=== PATIENT | male | born 1930 | race Caucasian/White ===

== ENCOUNTER → 2016-10-04 | Outpatient (CLI) | payer OTHER ==
[~2016-10-04] MED LIST: AMIO200T PO; ASPI-496 PO; BENZ200C40 PO; BIMA2.5D EACHEYE; COLE1TAB2 PO; COLE1TAB4 PO; DICL50TA4 PO; DOCU-30 PO; DOXA1TAB PO; DOXA1TAB2 PO; ESOM40CA PO; FURO-92 PO; HYDR-3144 PO; LISI-167 PO; LISI5TAB7 PO; MELO-184 PO; OMEP40CA6 PO; POTA20TA14 PO; PRAV40TA2 PO; SUCR1TAB26 PO; TAMS0.4C2 PO; WARF1TAB7 PO; WARF5TAB7 PO
== END | disposition home or self-care (01) ==
LOC: CFH 09:27
PROVIDERS: ATTEND Internal Medicine Cardiovascular Disease
DX: Z95.2 Presence of prosthetic heart valve (principal)
CPT/HCPCS: 93306

== ENCOUNTER → 2016-12-19 | Outpatient (CLI) | payer OTHER | END | disposition home or self-care (01) | LOC: CFH 10:36 | PROVIDERS: ATTEND Family Medicine | DX: J98.4 Other disorders of lung (principal); J98.6 Disorders of diaphragm; Z95.2 Presence of prosthetic heart valve | CPT/HCPCS: 71020 ==

== ENCOUNTER → 2017-03-23 | Outpatient (CLI) | payer OTHER ==
[~2017-03-23] MED LIST changes: -BENZ200C40 PO; +BENZ200C48 PO; -COLE1TAB4 PO; +COLE1TAB5 PO; +DOCU-131 PO; -DOCU-30 PO; +GADOBUTROL 7.5 MMOL/7.5 ML PFS ONE; -HYDR-3144 PO; +HYDR-3245 PO; -MELO-184 PO; +MELO15TA24 PO; -SUCR1TAB26 PO; +SUCR1TAB33 PO
== END | disposition home or self-care (01) ==
LOC: CFH 08:59
PROVIDERS: ATTEND Family Medicine
DX: G31.9 Degenerative disease of nervous system, unspecified (principal); I65.23 Occlusion and stenosis of bilateral carotid arteries; H53.9 Unspecified visual disturbance
CPT/HCPCS: 70544; 70553; 82565; 93880; A9585

== ENCOUNTER → 2017-10-04 | Outpatient (CLI) | payer OTHER ==
[~2017-10-04] MED LIST changes: -GADOBUTROL 7.5 MMOL/7.5 ML PFS ONE; +WARF-36 PO; -WARF1TAB7 PO; +WARF1TAB74 PO; -WARF5TAB7 PO
== END | disposition home or self-care (01) ==
LOC: CVU 09:19
PROVIDERS: ATTEND Internal Medicine Cardiovascular Disease
DX: I51.7 Cardiomegaly (principal); I34.8 Other nonrheumatic mitral valve disorders; Z95.2 Presence of prosthetic heart valve
CPT/HCPCS: 93306

== ENCOUNTER 2017-11-11 18:16 | Emergency (ER) | payer OTHER ==
[~2017-11-11] VITALS: Ht 172.7 cm; Wt 76.7 kg
[2017-11-11 18:22] VITALS: BP 177/86
[2017-11-11] MEDS ORDERED: DIPH,PERTUSS(ACELL),TET VAC/PF 0.5 ML IM-VACC ONE ×2 (19:14→19:30)
[2017-11-11] MEDS ORDERED: L.E.T SOLUTION TP ONE ×2 (19:14→19:30)
[2017-11-11] MEDS ORDERED: BACITRACIN ZINC OINT 500U/GM, 0.9 GM ONE (19:44)
== END 2017-11-11 21:06 | disposition home or self-care (01) ==
LOC: ED 20:58
DX: S41.102A Unspecified open wound of left upper arm, initial encounter (principal); E11.9 Type 2 diabetes mellitus without complications; E78.5 Hyperlipidemia, unspecified; I25.2 Old myocardial infarction; Z87.891 Personal history of nicotine dependence; Z90.49 Acquired absence of other specified parts of digestive tract; W18.30XA Fall on same level, unspecified, initial encounter; Y93.89 Activity, other specified; Y99.8 Other external cause status; Y92.009 Unspecified place in unspecified non-institutional (private) residence as the place of occurrence of the external cause
CPT/HCPCS: 90471; 90715; 97597; 99283; 99284

== ENCOUNTER 2018-05-24 04:09 | Inpatient (IN) | payer OTHER ==
[~2018-05-24] VITALS: Ht 172.7 cm; Wt 80.5 kg
[2018-05-24] MEDS ORDERED: ONDANSETRON 2MG/ML, 2ML IVPush ONE (05:30)
[2018-05-24] MEDS ORDERED: SODIUM CHLORIDE 0.9% 1,000ML IVBOLUS ONE (05:30)
[2018-05-24 05:50] LABS: BASOPHILS # (AUTO) 0.01 x10^3/uL (0-0.1); BASOPHILS % (AUTO) 0 % (0-1); EOSINOPHILS # (AUTO) 0.05 x10^3/uL (0-0.4); EOSINOPHILS % (AUTO) 1 % (1-7); LYMPHOCYTES % (AUTO) 4 % (22-44); MD NO; MEAN CORPUSCULAR HEMOGLOBIN 32.4 pg (27.5-34.5); MEAN CORPUSCULAR HGB CONC 34.3 g/dL (33.2-36.2); MEAN CORPUSCULAR VOLUME 94.4 fL (81-97); MEAN PLATELET VOLUME 8.1 fL (7.4-10.4); MONOCYTES # (AUTO) 0.26 x10^3/uL (0.2-0.8); MONOCYTES % (AUTO) 3 % (2-9); NEUTROPHILS # (AUTO) 9.53 x10^3/uL (1.8-6.8); NEUTROPHILS % (AUTO) 93 % (42-75); PLATELET COUNT 164 x10^3/uL (130-400); RED BLOOD COUNT 5.43 x10^6/uL (4.38-5.82); RED CELL DISTRIBUTION WIDTH 13.3 % (9.4-14.8)
[2018-05-24 05:56] LABS: ALANINE AMINOTRANSFERASE 17 U/L (12-78); ALBUMIN 3.6 g/dL (3.4-5.0); ANION GAP 7 mmol/L (5-15); CALCIUM 8.7 mg/dL (8.5-10.1); CHLORIDE 102 mmol/L (98-107)
[2018-05-24 05:58] LABS: ALKALINE PHOSPHATASE 79 U/L (45-117); BILIRUBIN,TOTAL 2.4 mg/dL (0.2-1.0); CREATININE 1.43 mg/dL (0.7-1.3); TOTAL PROTEIN 6.3 g/dL (6.4-8.2)
[2018-05-24] MEDS ORDERED: OMNIPAQUE 350 MG/ML, 100ML BOTTLE ONE (06:49)
[2018-05-24] MEDS ORDERED: hydrALAzine 20 MG/ML, 1ML IVPush PRN (10:00)
[2018-05-24] MEDS ORDERED: ONDANSETRON 2MG/ML, 2ML IVPush PRN (10:00)
[2018-05-24] MEDS ORDERED: ONDANSETRON ODT 4 MG PO PRN (10:00)
[2018-05-24] MEDS ORDERED: ZOLPIDEM 5MG TABLET PO PRN (10:00)
[2018-05-24] MEDS ORDERED: ACETAMINOPHEN 325 MG TABLET PO PRN (10:00)
[2018-05-24 10:32] LABS: FREE T4 (FREE THYROXINE) 1.21 ng/dL (0.76-1.46); THYROID STIMULATING HORMONE 1.6 mIU/L (0.358-3.740)
[2018-05-24] MEDS: HEPARIN 5,000 UNITS/ML, 1ML SQ SCH ×2 (11:15→20:28)
[2018-05-24] MEDS: OMEPRAZOLE 20 MG CAPSULE.DR PO SCH (11:15)
[2018-05-24] MEDS: SODIUM CHLORIDE 0.9% 1,000 ML IV SCH ×2 (11:15→20:28)
[2018-05-24 14:58] VITALS: BP 102/65
[2018-05-24 16:04] LABS: CLOSTRIDIUM DIFFICILE ANTIGEN NEGATIVE; CLOSTRIDIUM DIFFICILE TOXIN NEGATIVE (Negative)
[2018-05-24 20:00] VITALS: BP 121/71
[2018-05-24] MEDS ORDERED: PRAVASTATIN 40 MG TABLET PO SCH (21:00)
[2018-05-24] MEDS ORDERED: TAMSULOSIN 0.4 MG CAP.ER.24H PO SCH (21:00)
[2018-05-25 02:00] VITALS: BP 121/71
[2018-05-25 04:54] LABS: BASOPHILS # (AUTO) 0.01 x10^3/uL (0-0.1); BASOPHILS % (AUTO) 0 % (0-1); EOSINOPHILS # (AUTO) 0.16 x10^3/uL (0-0.4); EOSINOPHILS % (AUTO) 2 % (1-7); LYMPHOCYTES # (AUTO) 1.26 x10^3/uL (1-3.4); LYMPHOCYTES % (AUTO) 17 % (22-44); MD NO; MEAN CORPUSCULAR HEMOGLOBIN 32.6 pg (27.5-34.5); MEAN CORPUSCULAR HGB CONC 34.6 g/dL (33.2-36.2); MEAN CORPUSCULAR VOLUME 94.1 fL (81-97); MEAN PLATELET VOLUME 8.4 fL (7.4-10.4); MONOCYTES % (AUTO) 6 % (2-9); NEUTROPHILS % (AUTO) 75 % (42-75); PLATELET COUNT 141 x10^3/uL (130-400); RED CELL DISTRIBUTION WIDTH 13.6 % (9.4-14.8)
[2018-05-25 04:58] LABS: ANION GAP 7 mmol/L (5-15); CALCIUM 7.8 mg/dL (8.5-10.1); CHLORIDE 105 mmol/L (98-107); CREATININE 0.94 mg/dL (0.7-1.3)
[2018-05-25] MEDS: OMEPRAZOLE 20 MG CAPSULE.DR PO SCH (06:01)
[2018-05-25] MEDS: HEPARIN 5,000 UNITS/ML, 1ML SQ SCH (06:03)
[2018-05-25] MEDS: SODIUM CHLORIDE 0.9% 1,000 ML IV SCH (06:05)
[2018-05-25 07:39] VITALS: BP 128/69
[2018-05-25] MEDS ORDERED: COLESTIPOL 1 GM TABLET PO SCH (09:00)
== END 2018-05-25 12:24 | disposition home or self-care (01) | DRG 683 ==
LOC: ED 05:16 → EDIP 07:20 → 4EST 08:59
PROVIDERS: ADMIT Hospitalist; ATTEND Hospitalist
DX: N17.0 Acute kidney failure with tubular necrosis (principal); E87.1 Hypo-osmolality and hyponatremia; E86.0 Dehydration; K52.9 Noninfective gastroenteritis and colitis, unspecified; E11.9 Type 2 diabetes mellitus without complications; E78.5 Hyperlipidemia, unspecified; E87.5 Hyperkalemia; N40.0 Benign prostatic hyperplasia without lower urinary tract symptoms; I10 Essential (primary) hypertension; I25.10 Atherosclerotic heart disease of native coronary artery without angina pectoris; I25.2 Old myocardial infarction; Z87.11 Personal history of peptic ulcer disease; Z95.3 Presence of xenogenic heart valve; Z90.49 Acquired absence of other specified parts of digestive tract
CPT/HCPCS: 36415; 71045; 74177; 80048; 80053; 83690; 84439; 84443; 85025; 87324; 89055; G0378; J1644; Q9967; J7030

== ENCOUNTER 2018-08-19 20:01 | Emergency (ER) | payer MEDICARE, OTHER ==
[~2018-08-19] VITALS: Ht 175.3 cm; Wt 80.3 kg
--- NOTE | 2018-08-19 20:07 | NUR ---
EKG ACCOMPLISHED IN TRIAGE. BP RELAYED TO CHARGE.
[2018-08-19 20:55] LABS: BASOPHILS # (AUTO) 0.05 x10^3/uL (0-0.1); BASOPHILS % (AUTO) 1 % (0-1); EOSINOPHILS # (AUTO) 0.12 x10^3/uL (0-0.4); EOSINOPHILS % (AUTO) 2 % (1-7); LYMPHOCYTES # (AUTO) 2.14 x10^3/uL (1-3.4); LYMPHOCYTES % (AUTO) 32 % (22-44); MD NO; MEAN CORPUSCULAR HEMOGLOBIN 32.3 pg (27.5-34.5); MEAN CORPUSCULAR HGB CONC 33.9 g/dL (33.2-36.2); MEAN CORPUSCULAR VOLUME 95.2 fL (81-97); MEAN PLATELET VOLUME 8.3 fL (7.4-10.4); MONOCYTES # (AUTO) 0.51 x10^3/uL (0.2-0.8); MONOCYTES % (AUTO) 8 % (2-9); NEUTROPHILS # (AUTO) 3.97 x10^3/uL (1.8-6.8); NEUTROPHILS % (AUTO) 59 % (42-75); PLATELET COUNT 176 x10^3/uL (130-400); RED BLOOD COUNT 5.29 x10^6/uL (4.38-5.82); RED CELL DISTRIBUTION WIDTH 13.3 % (9.4-14.8)
--- NOTE | 2018-08-19 20:56 | NUR ---
Assumed care of patient. C/O COPPOLA and HTN. Placed on NIBP, pulse ox, and monitoring specialist. Wifer at bedside. Will continue to monitor.
[2018-08-19 21:07] LABS: ANION GAP 5 mmol/L (5-15); CALCIUM 8.6 mg/dL (8.5-10.1); CHLORIDE 101 mmol/L (98-107)
[2018-08-19 21:10] LABS: ALANINE AMINOTRANSFERASE 21 U/L (12-78); ALKALINE PHOSPHATASE 70 U/L (45-117); BILIRUBIN,TOTAL 1.6 mg/dL (0.2-1.0); CREATININE 1.05 mg/dL (0.7-1.3); TOTAL PROTEIN 6.9 g/dL (6.4-8.2)
[2018-08-19] MEDS ORDERED: LISINOPRIL 20 MG TABLET ONE (21:23)
[2018-08-19] MEDS ORDERED: LISINOPRIL 20 MG TABLET PO ONE (21:30)
--- NOTE | 2018-08-19 22:14 | NUR ---
REPORT RECEIVED FROM JAH ECHEVARRIA.
--- NOTE | 2018-08-19 22:21 | NUR ---
PT EMB TO BR WITH STEADY GAIT.
--- NOTE | 2018-08-19 22:42 | NUR ---
EDMD AT BEDSIDE TO EXPLAIN ALL RESULTS AT THIS TIME. AWAITING DISPO.
[2018-08-19 23:37] VITALS: BP 159/82
--- NOTE | 2018-08-19 23:54 | NUR ---
pt given dc instructions. pt amb to dc with steady gait. no acute distress at dc.
== END 2018-08-19 23:39 | disposition home or self-care (01) ==
LOC: ED 23:03
DX: I10 Essential (primary) hypertension (principal); I25.10 Atherosclerotic heart disease of native coronary artery without angina pectoris; I25.2 Old myocardial infarction; E78.00 Pure hypercholesterolemia, unspecified; E78.5 Hyperlipidemia, unspecified; E11.9 Type 2 diabetes mellitus without complications; Z90.49 Acquired absence of other specified parts of digestive tract
CPT/HCPCS: 36415; 71045; 80053; 85025; 93005; 99284

== ENCOUNTER 2018-08-20 21:06 | Emergency (ER) | payer MEDICARE, OTHER ==
[~2018-08-20] VITALS: Ht 170.2 cm; Wt 79.9 kg
--- NOTE | 2018-08-20 21:30 | NUR ---
PT ARRIVES TO ED WITH C/O OF ELEVATED BP AT THIS TIME. PER PT HE HAD BP IN THE 200S AT [place]. PT WAS SEEN FOR SAME YESTERDAY. PT IS A/OX4 AND HAD NAND AT THIS TIME. PT HAS NO NEURO DEFICETS. PT HAS GOOD CAP REFILL WITH GOOD PULSES.
[2018-08-20 23:05] VITALS: BP 154/74
--- NOTE | 2018-08-20 23:05 | NUR ---
Patient/Caregiver given discharge instructions and they have confirmed that they understand the instructions. Patient ambulatory with steady gait.
== END 2018-08-20 23:08 | disposition home or self-care (01) ==
LOC: ED 22:15
DX: I10 Essential (primary) hypertension (principal); K21.9 Gastro-esophageal reflux disease without esophagitis; I25.10 Atherosclerotic heart disease of native coronary artery without angina pectoris; I25.2 Old myocardial infarction; E78.00 Pure hypercholesterolemia, unspecified; E78.5 Hyperlipidemia, unspecified; E11.9 Type 2 diabetes mellitus without complications; N40.0 Benign prostatic hyperplasia without lower urinary tract symptoms; Z90.49 Acquired absence of other specified parts of digestive tract
CPT/HCPCS: 93005; 99283

== ENCOUNTER → 2018-10-08 | Outpatient (CLI) | payer MEDICARE, OTHER | END | disposition home or self-care (01) | LOC: CFH 09:40 | PROVIDERS: ATTEND Family Medicine | DX: S13.140A Subluxation of C3/C4 cervical vertebrae, initial encounter (principal); M48.02 Spinal stenosis, cervical region; M50.30 Other cervical disc degeneration, unspecified cervical region; X58.XXXA Exposure to other specified factors, initial encounter; Y93.89 Activity, other specified; Y92.89 Other specified places as the place of occurrence of the external cause; Y99.8 Other external cause status | CPT/HCPCS: 72050 ==

== ENCOUNTER → 2018-10-15 | Outpatient (CLI) | payer MEDICARE, OTHER | END | disposition home or self-care (01) | LOC: CVU 15:06 | PROVIDERS: ATTEND Internal Medicine Cardiovascular Disease | DX: Z48.812 Encounter for surgical aftercare following surgery on the circulatory system (principal); E78.5 Hyperlipidemia, unspecified; I10 Essential (primary) hypertension; Z95.2 Presence of prosthetic heart valve | CPT/HCPCS: 93306 ==

== ENCOUNTER 2018-12-28 01:16 | Emergency (ER) | payer MEDICARE, OTHER ==
[~2018-12-28] VITALS: Ht 167.6 cm; Wt 79.0 kg
[2018-12-28 02:13] VITALS: BP 147/77
== END 2018-12-28 03:15 | disposition home or self-care (01) ==
LOC: ED 03:00
DX: R05 Cough (principal); R06.02 Shortness of breath; R09.89 Other specified symptoms and signs involving the circulatory and respiratory systems; I11.9 Hypertensive heart disease without heart failure; E11.9 Type 2 diabetes mellitus without complications; E78.5 Hyperlipidemia, unspecified; K21.9 Gastro-esophageal reflux disease without esophagitis; E78.00 Pure hypercholesterolemia, unspecified; I25.10 Atherosclerotic heart disease of native coronary artery without angina pectoris; Z90.49 Acquired absence of other specified parts of digestive tract; Z95.5 Presence of coronary angioplasty implant and graft; Z95.4 Presence of other heart-valve replacement
CPT/HCPCS: 36415; 71045; 80048; 82040; 84484; 85025; 93005; 99284

== ENCOUNTER → 2019-10-10 | Outpatient (CLI) | payer MEDICARE, OTHER ==
[~2019-10-10] MED LIST changes: +OMEP40CA42 PO; -OMEP40CA6 PO
== END | disposition home or self-care (01) ==
LOC: CFH 12:26
PROVIDERS: ATTEND Internal Medicine Cardiovascular Disease
DX: I08.1 Rheumatic disorders of both mitral and tricuspid valves (principal); I10 Essential (primary) hypertension; E78.5 Hyperlipidemia, unspecified; Z95.3 Presence of xenogenic heart valve
CPT/HCPCS: 93306

== ENCOUNTER 2020-02-12 08:06 | Emergency (ER) | payer MEDICARE, OTHER ==
[~2020-02-12] VITALS: Ht 172.7 cm; Wt 81.0 kg
--- NOTE | 2020-02-12 08:28 | NUR ---
PT BIB [facility], WITH [facility] THIS AM HITTING BUTTOCKS ON GROUND -LOC, PT NOW WITH INCREASED NECK PAIN. PT WITH CHRONIC NECK PAIN, TAKES VALIUM AT HOME DID NOT TAKE THIS AM. NO OTHER COMPLAINTS AT THIS TIME, PT TO BP, CONT PULSE OX. ORDERS RECIEVEED WILL MEDICATE PT FOR PAIN
[2020-02-12] MEDS ORDERED: KETOROLAC 30 MG/1 ML IM ONE (08:30)
[2020-02-12] MEDS ORDERED: DIAZEPAM 5 MG TABLET PO ONE (08:30)
[2020-02-12] MEDS ORDERED: DIAZEPAM 5 MG TABLET ONE (08:31)
[2020-02-12] MEDS ORDERED: KETOROLAC 30 MG/1 ML ONE (08:31)
[2020-02-12] MEDS ORDERED: DIAZ2TAB3 PO (09:51)
[2020-02-12] MEDS ORDERED: LISI-420 PO (09:51)
--- NOTE | 2020-02-12 10:00 | NUR ---
PT REPORT FROM SWATHI GARCIA. PT CARE TO BE ASSUMED.
--- NOTE | 2020-02-12 10:11 | NUR ---
TO XR PER MATTY
--- NOTE | 2020-02-12 10:48 | NUR ---
PT RETURNED FROM XR. C-COLLAR STILL PRESENT. PT REPORTS DECREASED PAIN. IV LOCK PRESENT RT FA: 20G. PT'S SPOUSE IN ROOM.
[2020-02-12] MEDS ORDERED: BIMA2.5D OP (10:55)
[2020-02-12] MEDS ORDERED: CLON0.1T22 PO (10:55)
[2020-02-12 12:20] VITALS: BP 120/68
--- NOTE | 2020-02-12 12:28 | NUR ---
TASK RN: Patient/Caregiver given discharge instructions and they have confirmed that they understand the instructions. Patient ambulatory to wheelchair for discharge. Pt uses walker.
== END 2020-02-12 12:28 | disposition home or self-care (01) ==
LOC: ED 08:25
DX: S16.1XXA Strain of muscle, fascia and tendon at neck level, initial encounter (principal); S39.012A Strain of muscle, fascia and tendon of lower back, initial encounter; G89.29 Other chronic pain; I25.10 Atherosclerotic heart disease of native coronary artery without angina pectoris; I10 Essential (primary) hypertension; E11.9 Type 2 diabetes mellitus without complications; E78.5 Hyperlipidemia, unspecified; K21.9 Gastro-esophageal reflux disease without esophagitis; I25.2 Old myocardial infarction; W19.XXXA Unspecified fall, initial encounter; Y93.89 Activity, other specified; Y92.89 Other specified places as the place of occurrence of the external cause; Y99.8 Other external cause status
CPT/HCPCS: 72110; 72125; 96372; 99284; J1885

== ENCOUNTER 2020-06-16 11:43 | Observation (INO) | payer MEDICARE, OTHER ==
[~2020-06-16] VITALS: Ht 172.7 cm; Wt 80.4 kg
[~2020-06-16 11:43] MED LIST changes: +BIMA2.5D OP; +CLON0.1T22 PO; +DIAZ2TAB3 PO; +LISI-420 PO
--- NOTE | 2020-06-16 12:02 | NUR ---
PT PLACED ON ALL ROOM MONITORING. EKG DONE ON ARRIVAL. PT DENIES ANY SYMPTOMS, DOES NOT REMEMBER WHAT HAPPENED. AT BS. CALL LIGHT WITHIN REACH. WARM BLANKET PROVIDED.
[2020-06-16] MEDS ORDERED: SODIUM CHLORIDE FLUSH 10ML SYR IVF ONE (13:00)
[2020-06-16 13:15] LABS: BASOPHILS % (AUTO) 1 % (0-1); EOSINOPHILS % (AUTO) 0 % (1-7); LYMPHOCYTES % (AUTO) 15 % (22-44); MEAN CORPUSCULAR HEMOGLOBIN 32.9 pg (27.5-34.5); MEAN CORPUSCULAR HGB CONC 34.7 g/dL (33.2-36.2); MEAN PLATELET VOLUME 7.7 fL (7.4-10.4); MONOCYTES % (AUTO) 8 % (2-9); NEUTROPHILS % (AUTO) 76 % (42-75); PLATELET COUNT 221 x10^3/uL (130-400); RED BLOOD COUNT 4.59 x10^6/uL (4.38-5.82); RED CELL DISTRIBUTION WIDTH 13.2 % (9.4-14.8)
[2020-06-16 13:25] LABS: MD NO; PROTHROMBIN TIME 10.6 Seconds (9.6-11.5)
[2020-06-16 13:27] LABS: ALBUMIN 3.7 g/dL (3.4-5.0); ANION GAP 7 mmol/L (5-15); CALCIUM 9.2 mg/dL (8.5-10.1); CHLORIDE 98 mmol/L (98-107); CREATININE 1.37 mg/dL (0.7-1.3)
[2020-06-16 13:30] LABS: TROPONIN I < 0.015 ng/mL (0.000-0.045)
[2020-06-16] MEDS ORDERED: SODIUM CHLORIDE 0.9% 1,000 ML IV ONE (14:00)
--- NOTE | 2020-06-16 14:08 | NUR ---
PT ASSISTED IN REPOSITIONING, PILLOW PROVIDED. VSS/UPDATED IN COMPUTER.
[2020-06-16] MEDS ORDERED: ACETAMINOPHEN 325 MG TABLET PO PRN (14:30)
[2020-06-16 17:23] VITALS: BP 162/72
[2020-06-16 17:25] VITALS: BP 144/74
[2020-06-16 17:27] VITALS: BP 151/80
[2020-06-16] MEDS: DIAZEPAM 2 MG TABLET PO SCH ×2 (17:28→20:17)
[2020-06-16] MEDS: HEPARIN 5,000 UNITS/ML, 1ML SQ SCH ×2 (17:28→23:58)
[2020-06-16] MEDS: ASPIRIN 81 MG TABLET EC PO SCH (17:28)
[2020-06-16] MEDS: SODIUM CHLORIDE 0.9% 1,000 ML IV SCH (17:28)
[2020-06-16 19:32] VITALS: BP 145/76
[2020-06-16] MEDS: COLESTIPOL 1 GM TABLET PO SCH (20:16)
[2020-06-16] MEDS: LISINOPRIL 20 MG TABLET PO SCH (20:17)
[2020-06-16] MEDS ORDERED: TAMSULOSIN 0.4 MG CAP.ER.24H PO SCH (21:00)
[2020-06-16] MEDS ORDERED: PRAVASTATIN 40 MG TABLET PO SCH (21:00)
[2020-06-17] VITALS: BP 155/87
[2020-06-17] MEDS: SODIUM CHLORIDE 0.9% 1,000 ML IV SCH ×2 (03:00→13:46)
[2020-06-17 05:11] LABS: BASOPHILS % (AUTO) 2 % (0-1); EOSINOPHILS % (AUTO) 1 % (1-7); LYMPHOCYTES % (AUTO) 21 % (22-44); MEAN CORPUSCULAR HEMOGLOBIN 33.1 pg (27.5-34.5); MEAN CORPUSCULAR HGB CONC 34.4 g/dL (33.2-36.2); MEAN PLATELET VOLUME 7.7 fL (7.4-10.4); MONOCYTES % (AUTO) 9 % (2-9); NEUTROPHILS % (AUTO) 67 % (42-75); PLATELET COUNT 183 x10^3/uL (130-400); RED CELL DISTRIBUTION WIDTH 13.2 % (9.4-14.8)
[2020-06-17 05:12] LABS: MD NO
[2020-06-17 05:21] LABS: ANION GAP 6 mmol/L (5-15); CALCIUM 9.1 mg/dL (8.5-10.1); CHLORIDE 103 mmol/L (98-107)
[2020-06-17 05:33] LABS: CHOLESTEROL, TOTAL 145 mg/dL (140-239); CREATININE 0.97 mg/dL (0.7-1.3); HDL CHOL % 34 % (26-37); HDL CHOLESTEROL (DIRECT) 49 mg/dL (40-60); LDL CHOLESTEROL,CALCULATED 72 mg/dL (54-169); LDL/HDL RATIO 1.5 (0.5-3.0); TRIGLYCERIDES 118 mg/dL (50-200); VLDL CHOLESTEROL 24 mg/dL (0-25)
[2020-06-17] MEDS: ASPIRIN 81 MG TABLET EC PO SCH (05:57)
[2020-06-17] MEDS ORDERED: OMEPRAZOLE 20 MG CAPSULE.DR PO SCH (06:00)
[2020-06-17 07:35] VITALS: BP 171/90
[2020-06-17] MEDS: HEPARIN 5,000 UNITS/ML, 1ML SQ SCH ×2 (08:46→15:36)
[2020-06-17] MEDS: COLESTIPOL 1 GM TABLET PO SCH (08:46)
[2020-06-17] MEDS: DIAZEPAM 2 MG TABLET PO SCH ×2 (08:46→15:36)
[2020-06-17] MEDS: LISINOPRIL 20 MG TABLET PO SCH (08:46)
[2020-06-17] MEDS ORDERED: Bimatoprost (Lumigan) 1 DROP HOMEOPHTH SCH (09:00)
[2020-06-17] MEDS ORDERED: GADOTERATE 10 MMOL/20 ML VIAL ONE (12:01)
[2020-06-17 12:19] VITALS: BP 153/84
[2020-06-17] MEDS ORDERED: ASPI81TA45 PO (15:21)
[2020-06-22] MEDS ORDERED: LISI-167 PO (09:56)
[2020-06-22] MEDS ORDERED: TAMS-11 PO (09:58)
[2020-06-24] MEDS ORDERED: PANT40TA6 PO (14:52)
[2020-06-24] MEDS ORDERED: ATOR40TA78 PO (14:52)
[2020-06-24] MEDS ORDERED: ASPI-515 PO/NG ×2 (14:52→17:12)
[2020-06-24] MEDS ORDERED: CLOP75TA PO (14:52)
== END 2020-06-17 18:45 | disposition home or self-care (01) ==
LOC: ED 12:10 → EDIP 14:10 → INTOOBSV 14:10 → SUATTDRO 14:10 → 4WST 15:31
PROVIDERS: ADMIT Internal Medicine; ATTEND Family Medicine
DX: R40.4 Transient alteration of awareness (principal); N17.9 Acute kidney failure, unspecified; G45.9 Transient cerebral ischemic attack, unspecified; I25.10 Atherosclerotic heart disease of native coronary artery without angina pectoris; I44.1 Atrioventricular block, second degree; I11.0 Hypertensive heart disease with heart failure; I50.30 Unspecified diastolic (congestive) heart failure; K21.9 Gastro-esophageal reflux disease without esophagitis; E78.5 Hyperlipidemia, unspecified; N40.0 Benign prostatic hyperplasia without lower urinary tract symptoms; E78.00 Pure hypercholesterolemia, unspecified; E87.1 Hypo-osmolality and hyponatremia; I07.1 Rheumatic tricuspid insufficiency; H91.90 Unspecified hearing loss, unspecified ear; G46.1 Anterior cerebral artery syndrome; I25.2 Old myocardial infarction; Z79.899 Other long term (current) drug therapy; Z86.73 Personal history of transient ischemic attack (TIA), and cerebral infarction without residual deficits; Z95.2 Presence of prosthetic heart valve
CPT/HCPCS: 36415; 70450; 70553; 71045; 80048; 80061; 82040; 84443; 84484; 85025; 85610; 85730; 92523; 93005; 93306; 96360; 96361; 96372; 97161; 97166; 99285; A9575; G0378; J1644; J7030

== ENCOUNTER 2020-10-05 16:07 | Emergency (ER) | payer MEDICARE, OTHER ==
[~2020-10-05] VITALS: Ht 172.7 cm; Wt 67.0 kg
[~2020-10-05 16:07] MED LIST changes: +ASPI-963 PO/NG; +ASPI81TA45 PO; +ATOR40TA78 PO; +CLOP75TA PO; -HYDR-3245 PO; +HYDR1TAB53 PO; -LISI-420 PO; +LISI20TA21 PO; +PANT40TA6 PO; +TAMS-11 PO
--- NOTE | 2020-10-05 16:24 | NUR ---
PT BIBA. PER EMS PT HAD A "DIZZY SPELL" AT APPROX 1445 WHILE OUTSIDE. PT DENIES LOC AND FEELS NO SYMPTOMS AT THIS TIME. 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 PER EMS PT'S IS ON THE WAY. PT RESTING IN RNORTH PLATTE, MONITORING IN PLACE, EKG DONE, NADN AT THIS TIME, PER PT NO NEEDS, WCTM.
[2020-10-05 17:31] LABS: BASOPHILS % (AUTO) 1 % (0-1); EOSINOPHILS % (AUTO) 1 % (1-7); LYMPHOCYTES % (AUTO) 26 % (22-44); MEAN CORPUSCULAR HEMOGLOBIN 32.3 pg (27.5-34.5); MEAN CORPUSCULAR HGB CONC 33.7 g/dL (33.2-36.2); MEAN PLATELET VOLUME 8.5 fL (7.4-10.4); MONOCYTES % (AUTO) 9 % (2-9); NEUTROPHILS % (AUTO) 64 % (42-75); PLATELET COUNT 247 x10^3/uL (130-400); RED BLOOD COUNT 4.82 x10^6/uL (4.38-5.82); RED CELL DISTRIBUTION WIDTH 13.1 % (9.4-14.8)
[2020-10-05 17:39] LABS: ALANINE AMINOTRANSFERASE 34 U/L (12-78); ALBUMIN 3.5 g/dL (3.4-5.0); ANION GAP 5 mmol/L (5-15); CALCIUM 8.7 mg/dL (8.5-10.1); CHLORIDE 100 mmol/L (98-107); CREATININE 1.09 mg/dL (0.7-1.3); MD NO
[2020-10-05 17:42] LABS: ALKALINE PHOSPHATASE 74 U/L (45-117); BILIRUBIN,TOTAL 1.4 mg/dL (0.2-1.0); TOTAL PROTEIN 6.2 g/dL (6.4-8.2)
[2020-10-05 18:46] VITALS: BP 163/71
== END 2020-10-05 19:25 | disposition home or self-care (01) ==
LOC: ED 19:13
DX: R55 Syncope and collapse (principal); R07.89 Other chest pain; R42 Dizziness and giddiness; I10 Essential (primary) hypertension; E11.9 Type 2 diabetes mellitus without complications; K21.9 Gastro-esophageal reflux disease without esophagitis; I25.10 Atherosclerotic heart disease of native coronary artery without angina pectoris; I25.2 Old myocardial infarction; I45.10 Unspecified right bundle-branch block
CPT/HCPCS: 36415; 71045; 80053; 85025; 93005; 99285

== ENCOUNTER 2020-10-06 18:25 | Observation (INO) | payer MEDICARE, OTHER ==
[~2020-10-06] VITALS: Ht 170.2 cm; Wt 73.5 kg
[~2020-10-06 18:25] MED LIST changes: -OMEP40CA42 PO; +OMEP40CA8 PO
--- NOTE | 2020-10-06 18:46 | NUR ---
PT CONCHITA FISH. PER REPORT, FAMILY CALLED 911 BECAUSE PT HAS NOT BEEN EATING AND IS UNABLE TO AMBULATE WITH HIS WALKER USUAL. PT STATED THAT "HE FEELS GOOD." PT WAS SEEN YESTERDAY IN ED AND PT AND WISHED TO BE DISCHARGED HOME. PT STATED THAT HE HAS SOME NECK PAIN, BUT THAT IS BASELINE FOR HIM.
[2020-10-06 19:07] LABS: BASOPHILS % (AUTO) 0 % (0-1); EOSINOPHILS % (AUTO) 0 % (1-7); LYMPHOCYTES % (AUTO) 5 % (22-44); MEAN CORPUSCULAR HEMOGLOBIN 32.9 pg (27.5-34.5); MEAN CORPUSCULAR HGB CONC 34.4 g/dL (33.2-36.2); MEAN PLATELET VOLUME 8.4 fL (7.4-10.4); MONOCYTES % (AUTO) 6 % (2-9); NEUTROPHILS % (AUTO) 89 % (42-75); PLATELET COUNT 195 x10^3/uL (130-400); RED BLOOD COUNT 4.54 x10^6/uL (4.38-5.82); RED CELL DISTRIBUTION WIDTH 13.2 % (9.4-14.8)
[2020-10-06 19:17] LABS: ANION GAP 8 mmol/L (5-15); CALCIUM 8.4 mg/dL (8.5-10.1); CHLORIDE 101 mmol/L (98-107)
[2020-10-06 19:18] LABS: ALANINE AMINOTRANSFERASE 485 U/L (12-78); ALBUMIN 3.1 g/dL (3.4-5.0)
[2020-10-06 19:22] LABS: ALKALINE PHOSPHATASE 170 U/L (45-117); BILIRUBIN,TOTAL 2.5 mg/dL (0.2-1.0); TOTAL PROTEIN 5.8 g/dL (6.4-8.2); TROPONIN I < 0.015 ng/mL (0.000-0.045)
--- NOTE | 2020-10-06 20:00 | NUR ---
US AT BEDSIDE.
[2020-10-06 20:02] LABS: MICROSCOPIC INDICATED
--- NOTE | 2020-10-06 20:56 | NUR ---
REPORT GIVEN TO SWATHI NICHOLS
--- NOTE | 2020-10-06 21:08 | NUR ---
ultrasound now at bedside
--- NOTE | 2020-10-06 22:41 | NUR ---
REPORT TO SWATHI ZARCO
[2020-10-06 23:45] VITALS: BP 144/73
[2020-10-07 01:58] VITALS: BP 146/75
[2020-10-07] MEDS ORDERED: ONDANSETRON 2MG/ML, 2ML IVPush PRN (03:00)
[2020-10-07] MEDS ORDERED: ACETAMINOPHEN 325 MG TABLET PO PRN (03:00)
[2020-10-07] MEDS ORDERED: ENALAPRILAT 1.25 MG/ML, 2ML IVPush PRN (03:00)
[2020-10-07 03:34] LABS: BASOPHILS % (AUTO) 1 % (0-1); EOSINOPHILS % (AUTO) 0 % (1-7); LYMPHOCYTES % (AUTO) 9 % (22-44); MEAN CORPUSCULAR HEMOGLOBIN 32.7 pg (27.5-34.5); MEAN CORPUSCULAR HGB CONC 34.3 g/dL (33.2-36.2); MEAN PLATELET VOLUME 8.1 fL (7.4-10.4); MONOCYTES % (AUTO) 6 % (2-9); NEUTROPHILS % (AUTO) 84 % (42-75); PLATELET COUNT 175 x10^3/uL (130-400); RED BLOOD COUNT 4.65 x10^6/uL (4.38-5.82); RED CELL DISTRIBUTION WIDTH 13.6 % (9.4-14.8)
[2020-10-07 03:48] LABS: ALANINE AMINOTRANSFERASE 390 U/L (12-78); ALBUMIN 3.2 g/dL (3.4-5.0); ANION GAP 8 mmol/L (5-15); CALCIUM 8.6 mg/dL (8.5-10.1); CHLORIDE 101 mmol/L (98-107); CREATININE 0.94 mg/dL (0.7-1.3)
[2020-10-07 03:50] LABS: ALKALINE PHOSPHATASE 155 U/L (45-117); BILIRUBIN,TOTAL 2.7 mg/dL (0.2-1.0); TOTAL PROTEIN 5.9 g/dL (6.4-8.2)
[2020-10-07] MEDS: PANTOPRAZOLE 40MG TABLET PO SCH (05:27)
[2020-10-07] MEDS: ASPIRIN 81 MG TABLET EC PO SCH (05:27)
[2020-10-07 06:56] VITALS: BP 133/78
[2020-10-07] MEDS: TEMPLATE NON-FORMULARY MED. (Bimatoprost (Lumigan) 1 DROP) OP SCH (09:00)
[2020-10-07] MEDS: CLOPIDOGREL 75 MG TABLET PO SCH (09:18)
[2020-10-07] MEDS: LISINOPRIL 20 MG TABLET PO SCH ×2 (09:18→20:30)
[2020-10-07] MEDS: D5%-0.45% NACL 1,000 ML IV SCH ×2 (12:00→22:17)
[2020-10-07 12:16] VITALS: BP 161/76
[2020-10-07] MEDS ORDERED: METHOCARBAMOL 500 MG TABLET PO PRN (13:30)
[2020-10-07] MEDS ORDERED: MEDROL 4MG DOSEPAK PO SCH (14:00)
[2020-10-07] MEDS: GABAPENTIN 100 MG CAPSULE PO SCH ×2 (15:21→20:30)
[2020-10-07 19:15] VITALS: BP 162/82
[2020-10-07] MEDS ORDERED: ATORVASTATIN 40 MG TABLET PO SCH (21:00)
[2020-10-08 02:17] VITALS: BP 154/83
[2020-10-08] MEDS: PANTOPRAZOLE 40MG TABLET PO SCH (05:22)
[2020-10-08] MEDS: ASPIRIN 81 MG TABLET EC PO SCH (05:22)
[2020-10-08] MEDS: GABAPENTIN 100 MG CAPSULE PO SCH ×2 (05:22→11:21)
[2020-10-08 05:44] LABS: CHLORIDE 102 mmol/L (98-107)
[2020-10-08 05:55] LABS: ALANINE AMINOTRANSFERASE 227 U/L (12-78); ALBUMIN 3.1 g/dL (3.4-5.0); ALKALINE PHOSPHATASE 131 U/L (45-117); ANION GAP 7 mmol/L (5-15); BILIRUBIN,TOTAL 1.6 mg/dL (0.2-1.0); CREATININE 0.83 mg/dL (0.7-1.3); TOTAL PROTEIN 6.4 g/dL (6.4-8.2)
[2020-10-08 07:15] VITALS: BP 178/85
[2020-10-08] MEDS: LISINOPRIL 20 MG TABLET PO SCH (07:43)
[2020-10-08] MEDS: CLOPIDOGREL 75 MG TABLET PO SCH (07:43)
[2020-10-08] MEDS: D5%-0.45% NACL 1,000 ML IV SCH (07:49)
[2020-10-08] MEDS: TEMPLATE NON-FORMULARY MED. (Bimatoprost (Lumigan) 1 DROP) OP SCH (07:55)
[2020-10-08] MEDS ORDERED: METH4TAB2 PO (12:23)
[2020-10-08] MEDS ORDERED: TRAM50TA2 PO (12:23)
[2020-10-08] MEDS ORDERED: GABA-826 PO (12:23)
[2020-10-08] MEDS ORDERED: METH-639 PO (12:23)
[2020-10-08] MEDS ORDERED: CEPH750C9 PO (12:45)
== END 2020-10-08 13:29 | disposition home or self-care (01) ==
LOC: ED 18:48 → INTOOBSV 22:11 → EDIP 22:11 → 3N 22:46 → UNDODISIN 10-08 13:29
PROVIDERS: ADMIT Family Medicine; ATTEND Internal Medicine
DX: S12.112A Nondisplaced Type II dens fracture, initial encounter for closed fracture (principal); I65.29 Occlusion and stenosis of unspecified carotid artery; M47.812 Spondylosis without myelopathy or radiculopathy, cervical region; M48.02 Spinal stenosis, cervical region; N39.0 Urinary tract infection, site not specified; R74.01 Elevation of levels of liver transaminase levels; R53.1 Weakness; R07.89 Other chest pain; H91.90 Unspecified hearing loss, unspecified ear; K21.9 Gastro-esophageal reflux disease without esophagitis; N40.0 Benign prostatic hyperplasia without lower urinary tract symptoms; I10 Essential (primary) hypertension; Z79.82 Long term (current) use of aspirin; Z79.899 Other long term (current) drug therapy; Z86.73 Personal history of transient ischemic attack (TIA), and cerebral infarction without residual deficits; Z95.4 Presence of other heart-valve replacement; W18.39XA Other fall on same level, initial encounter; Y93.89 Activity, other specified; Y92.89 Other specified places as the place of occurrence of the external cause
CPT/HCPCS: 36415; 71045; 72125; 72141; 76700; 80053; 80074; 80299; 81001; 83690; 84443; 84484; 85025; 87077; 87086; 87186; 93005; 96360; 96361; 97163; 99285; G0378; J7509

== ENCOUNTER 2021-02-14 13:47 | Outpatient (CLI) | payer MEDICARE, OTHER ==
[~2021-02-14 13:47] MED LIST changes: +CEPH750C9 PO; +GABA-826 PO; +METH-639 PO; +METH4TAB2 PO; +TRAM50TA2 PO
== END 2021-02-14 23:59 | disposition home or self-care (01) ==
LOC: CFH 13:47
PROVIDERS: ATTEND Internal Medicine Cardiovascular Disease
DX: I08.1 Rheumatic disorders of both mitral and tricuspid valves (principal); I11.9 Hypertensive heart disease without heart failure; E78.00 Pure hypercholesterolemia, unspecified; I45.19 Other right bundle-branch block; Z95.3 Presence of xenogenic heart valve
CPT/HCPCS: 93306; 93356